=== PATIENT | male | born 1985 | race Caucasian/White ===

== ENCOUNTER → 2019-02-10 | Outpatient (CLI) | payer OTHER ==
[~2019-02-10] MED LIST: CEP500 PO; LOR5 PO; NO CURRENT MEDS; PRO25 PO
[2019-02-10 08:22] LABS: PLATELET COUNT, AUTOMATED 192 K/uL (150-450)
[2019-02-10 09:08] LABS: LDL CHOLESTEROL 114 mg/dl
== END ==
LOC: LAB 08:06
PROVIDERS: ATTEND Internal Medicine
DX: Z00.00 Encounter for general adult medical examination without abnormal findings (principal); T14.8XXA Other injury of unspecified body region, initial encounter
CPT/HCPCS: 36415; 81001; 82040; 82247; 82310; 82374; 82435; 82465; 82565; 82947; 83718; 84075; 84132; 84155; 84295; 84443; 84450; 84460; 84478; 84520; 85025